=== PATIENT | male | born 1980 | race Caucasian/White ===

== ENCOUNTER → 2020-06-27 11:43 | Outpatient (BNVA) | payer OTHER, SELFPAY | PROVIDERS: Family Provider Nurse Practitioner; PCP Nurse Practitioner Family; Visit Provider Nurse Practitioner Family | DX: R50.9 Fever, unspecified (principal); K59.03 Drug induced constipation | CPT/HCPCS: 87635 ==

== ENCOUNTER → 2021-10-17 13:28 | Outpatient (BNVA) | payer OTHER, SELFPAY | PROVIDERS: Family Provider Nurse Practitioner; PCP Nurse Practitioner Family; Visit Provider Nurse Practitioner Family | DX: R10.9 Unspecified abdominal pain (principal); E66.9 Obesity, unspecified; F41.8 Other specified anxiety disorders; K21.9 Gastro-esophageal reflux disease without esophagitis; K59.03 Drug induced constipation; R11.0 Nausea | CPT/HCPCS: 80053; 82150; 83690 ==

== ENCOUNTER 2021-10-19 07:14 | Emergency (ER) | payer OTHER, SELFPAY ==
[2021-10-19 07:19] VITALS: BP 156/100; PULSE 115; RESP 19; TEMP 36.9; O2SAT 98; BMI 24.3
--- NOTE | 2021-10-19 07:29 | XR_ITS ---
WS: [id number] Exam: XR finger LT min 2V [id number] Date/Time of Exam: 10/19/2021 7:29 AM Reason For Exam: L 2nd finger The index finger is targeted for radiographic evaluation. There is a cortical fracture along the volar aspect of the distal tuft of the distal phalan x. No other fractures. No dislocation. Soft tissue laceration and edema. XR/XR finger LT min 2V [id number] IMPRESSION: 1. Displaced cortical fracture of the distal end of the distal phalanx of the i ndex finger with soft tissue injury.
[2021-10-19 07:36] VITALS: BP 143/94; PULSE 104; RESP 18; O2SAT 95
--- NOTE | 2021-10-19 07:42 | W.ED.WOUNDLC ---
HPI - Wound/Laceration General: Chief Complaint: Wound/Laceration Stated Complaint: Trauma: hand saw to left index finger Time Seen by Provider: 10/19/21 07:20 History of Present Illness: HPI narrative: 41-year-old male presents emergency room with an injury to his left index finger. He is using a skill saw and got his finger in the blade. Over the pad of the finger he has about a 2 cm laceration. States his immunizations up-to-date as of 3 years ago. Denies any other injuries. Onset (ago): minute(s) Extremity Location: Left: hand (Index) Place: work Patient tetanus UTD: Yes Context: accidental Associated symptoms: Reports no associated symptoms; Denies chills, fever(s), nausea or vomiting Treatments prior to arrival: bandage Review of Systems Const: Denies: fever(s), chills, body aches, change in appetite, fatigue or malaise Card: Denies: chest pain, edema, dyspnea on exertion or orthopnea Resp: Denies: dyspnea, productive cough or non-productive cough GI: Denies: abdominal pain, nausea, vomiting, hematemesis, coffee ground emesis, diarrhea, constipation, bloating, hematochezia or melena : Denies: flank pain, dysuria, urinary frequency or urinary urgency PFSH ED PFSH: Medical History Depression with anxiety Obesity Family History Father Diabetes Hepatitis C Mother Diabetes Social History Smoking and tobacco status: current every day smoker cigarettes Packs smoked per day: 0.5 Years cigarettes smoked: 25 Quit status (tobacco): not considering quitting Second hand smoke exposure: Yes Alcohol intake: current Alcohol intake frequency: few times a week Alcohol type: hard liquor Desire information about alcohol rehabilitation?: Yes Lives independently: Yes Marital status: Single Current occupational status: employed Current occupation: [employer] History of recent travel: No Current gender identity: Male Physical Exam Const: COMMON NORMALS: no acute distress GENERAL APPEARANCE: cooperative and comfortable ORIENTATION/CONSCIOUSNESS: Yes awake, Yes oriented to person, Yes oriented to place and Yes oriented to time HENMT: COMMON NORMALS: normocephalic, atraumatic and hearing grossly normal bilaterally HEAD & SCALP: normocephalic and atraumatic Neck/C-Spine: COMMON NORMALS: no JVD Resp: COMMON NORMALS: normal respiratory effort, No retractions, No use of accessory muscles and clear to auscultation bilaterally AUSCULTATION: clear to auscultation bilaterally Cardio: COMMON NORMALS: no JVD, regular rate, regular rhythm and No murmurs present (Cardio) RATE: regular rate RHYTHM: regular rhythm Extremity: NARRATIVE EXTREMITY EXAM: Left index finger 2 cm laceration from the tip of the finger across the pad medially. Neuro: SENSORIUM/ORIENTATION: Yes oriented to person, Yes oriented to place and Yes oriented to time Skin: COMMON NORMALS: no rashes or lesions noted GENERAL SKIN EXAM: no rashes or lesions noted Procedures Laceration Laceration 1: Side (If applicable): left Size (cm): 2 Description: linear and contaminated Depth: simple, single layer Local Anesthetic: lidocaine 1% (Digital nerve block left index finger) Amount of anesthesia used (mL): 5 Pre-repair: irrigated extensively Skin layer closed with: nylon Size (cm): 4-0 Number of sutures: 2 Technique: simple, interrupted Course Vital Signs: Vital signs: Vital Signs Temperature 98.4 F 10/19/21 07:19 Pulse Rate 102 H 10/19/21 09:25 Respiratory Rate 18 10/19/21 09:25 Blood Pressure 122/101 10/19/21 09:25 Pulse Oximetry 97 10/19/21 09:25 MDM - Wound/Laceration MDM Narrative: Medical decision making narrative: Keep finger elevated. Start Augmentin 1 p.o. twice daily x7 days sutures out in 10 days. Topical mupirocin twice daily. Return if has problems or signs of infection. Discharge Plan Discharge Patient Disposition: Home Clinical Impression: Finger laceration Condition: Stable Prescriptions: New mupirocin 2 % ointment 1 applic topical BID Qty: 15 RF: 0 Augmentin 875-125 mg tablet 1 tab PO BID Qty: 14 RF: 0 No Action ondansetron HCl [Zofran] 4 mg tablet 4 mg PO Q8H PRN (Reason: nausea and vomiting) Qty: 30 RF: 0 Protonix 40 mg tablet,delayed release (DR/EC) 40 mg PO QAM RF: 0 Miralax 17 gram/dose powder 17 g PO DAILY RF: 0 Discharge Orders: Discharge ED (Routine); Ordered 10/19/21 Ordered By: Álvaro Mohan Referrals: Hilda Mcknight APN [Primary Care Provider] - Discharge Diet: Usual diet Discharge Activity: Resume usual activity Patient Instructions: Opioid Safety Activity Restrictions/Additional Instructions: Limit use of left hand. Sutures out in 7 to 10 days. Return for signs of infection. Coding Level of Care Code ED Automation Sales Manager for Chg Fwd Exam Detailed
[2021-10-19] MEDS: HYDROcodone-acetaminophen 5-325 mg Tablet 2 TAB PO (08:18)
[2021-10-19 08:19] VITALS: BP 137/84; PULSE 103; RESP 14; O2SAT 100
[2021-10-19] MEDS: bacitracin ointment Pkt 1 EACH TOPICAL (09:15)
[2021-10-19 09:25] VITALS: BP 122/101; PULSE 102; RESP 18; O2SAT 97
== END 2021-10-19 09:19 | disposition home or self-care (01) ==
PROVIDERS: Emergency Provider Family Medicine; PCP Nurse Practitioner Family
DX: S61.211A Laceration without foreign body of left index finger without damage to nail, initial encounter (principal); W27.0XXA Contact with workbench tool, initial encounter; F17.210 Nicotine dependence, cigarettes, uncomplicated
CPT/HCPCS: 12001; 73140; 99283

== ENCOUNTER → 2022-02-23 11:14 | Outpatient (BNVA) | payer OTHER, SELFPAY | PROVIDERS: PCP Nurse Practitioner Family; Visit Provider Nurse Practitioner Family | DX: J06.9 Acute upper respiratory infection, unspecified (principal); J40 Bronchitis, not specified as acute or chronic; R05.9 Cough, unspecified | CPT/HCPCS: 71046; 80053 ==

== ENCOUNTER → 2023-09-23 11:28 | Outpatient (BNVA) | payer OTHER, SELFPAY | PROVIDERS: PCP Nurse Practitioner Family; Visit Provider Nurse Practitioner Family | DX: R07.89 Other chest pain (principal); J40 Bronchitis, not specified as acute or chronic; Z13.220 Encounter for screening for lipoid disorders; J06.9 Acute upper respiratory infection, unspecified | CPT/HCPCS: 80053; 80061 ==

== ENCOUNTER → 2025-06-14 16:21 | Outpatient (BNVA) | payer OTHER, SELFPAY | PROVIDERS: PCP Nurse Practitioner Family; Visit Provider Nurse Practitioner Family | DX: R16.0 Hepatomegaly, not elsewhere classified (principal) | CPT/HCPCS: 80053; 80061; 83721; 84443; 85025 ==

== ENCOUNTER 2025-07-09 08:41 | Outpatient (CLI) | payer OTHER, SELFPAY ==
--- NOTE | 2025-07-09 08:45 | US_ITS ---
WS: [id number] RIGHT UPPER QUADRANT ULTRASOUND HISTORY: R16.0 - Hepatomegaly, not elsewhere classified COMPARISON: None available. Liver: 16.1 cm in length. Normal size liver and echogenicity. No bile duct dilatation or mass. Portal Vein: Normal hepatopetal flow with monophasic waveform. Gallbladder: Normally distended gallbladder with no stones or wall thickening. CBD: 0.3 cm Pancreas: Partially visualized. Partial obscuration of the body and tail. Right kidney: 11.3 cm in length. Normal size and echogenicity. No hydronephrosis or mass. Aorta and IVC: Unremarkable abdominal aorta and IVC. No ascites. US/US liver [id number] IMPRESSION: 1. Normal gallbladder. 2. Normal size liver. No intrahepatic duct dilatation. 3. Partially visualized pancreas.
== END 2025-07-09 08:42 | disposition home or self-care (01) ==
LOC: RAD 08:44
PROVIDERS: PCP Nurse Practitioner Family; Visit Provider Nurse Practitioner Family
DX: R16.0 Hepatomegaly, not elsewhere classified (principal)
CPT/HCPCS: 76705